=== PATIENT | male | born 1965 | race African-American/Black ===

== ENCOUNTER 2016-07-18 17:47 | Emergency (ER) | payer OTHER | END 2016-07-18 19:10 | disposition home or self-care (01) | LOC: FER 17:47 | DX: S20.212A Contusion of left front wall of thorax, initial encounter (principal); E11.9 Type 2 diabetes mellitus without complications; I10 Essential (primary) hypertension; Z79.82 Long term (current) use of aspirin; W01.0XXA Fall on same level from slipping, tripping and stumbling without subsequent striking against object, initial encounter; Y92.009 Unspecified place in unspecified non-institutional (private) residence as the place of occurrence of the external cause | CPT/HCPCS: 71101; 99283 ==

== ENCOUNTER 2016-07-23 16:11 | Emergency (ER) | payer OTHER ==
[2016-07-23 17:03] LABS: BASOPHIL 0.5 % (0-2); EOSINOPHIL 1.4 % (0-5); HCT 41.3 % (42.0-52.0); HGB 13.8 g/dl (13.2-18.0); LYMPHOCYTE 34.7 % (15-48); MCH 29.4 pg (25.0-31.0); MCHC 33.4 g/dL (32.0-36.0); MCV 87.9 fL (78.0-100.0); MONOCYTE 9.5 % (0-12); MPV 9.3 fL (6.0-9.5); NEUTROPHIL 53.9 % (41-80); PLT 260 K/uL (150-400); RDW 13.9 % (11.5-14.0); WBC 6.3 K/uL (4.0-10.5)
[2016-07-23 17:19] LABS: ALBUMIN 4.1 g/dL (3.5-5.0); BILIRUBIN - TOTAL 0.2 mg/dL (0.1-1.0); CREATININE 0.9 mg/dL (0.7-1.2); GLOBULIN (CALCULATION) 2.5 g/dL (2.2-4.2); POTASSIUM 3.9 mmol/L (3.5-5.1); TOTAL PROTEIN 6.6 g/dL (6.4-8.3)
[2016-07-23 17:21] LABS: PRO-BNP 94 pg/mL (0-125); TROPONIN T < 0.010 ng/mL
[2016-07-23 17:24] LABS: LACTIC ACID 1.2 mmol/L (0.5-2.2)
[2016-07-23 17:27] LABS: CKMB 5.47 ng/mL (0.97-4.94)
== END 2016-07-23 17:57 | disposition home or self-care (01) ==
LOC: FER 16:11
PROVIDERS: Nurse Practitioner Family
DX: R07.89 Other chest pain (principal); R05 Cough; E11.9 Type 2 diabetes mellitus without complications; I10 Essential (primary) hypertension; K21.9 Gastro-esophageal reflux disease without esophagitis; F17.210 Nicotine dependence, cigarettes, uncomplicated; W19.XXXD Unspecified fall, subsequent encounter
CPT/HCPCS: 36415; 71020; 80053; 82550; 82553; 83605; 83880; 84484; 85025; 85379; 93005; 94640

== ENCOUNTER 2017-01-21 17:06 | Emergency (ER) | payer OTHER | END 2017-01-21 20:46 | disposition home or self-care (01) | LOC: FER 17:06 | DX: S91.331A Puncture wound without foreign body, right foot, initial encounter (principal); E11.9 Type 2 diabetes mellitus without complications; K21.9 Gastro-esophageal reflux disease without esophagitis; I10 Essential (primary) hypertension; F17.210 Nicotine dependence, cigarettes, uncomplicated; Z79.4 Long term (current) use of insulin; Z79.82 Long term (current) use of aspirin; Z79.899 Other long term (current) drug therapy; W45.0XXA Nail entering through skin, initial encounter; Y92.009 Unspecified place in unspecified non-institutional (private) residence as the place of occurrence of the external cause | CPT/HCPCS: 73630; 90471; 90715 ==

== ENCOUNTER 2021-04-07 08:07 | Emergency (ER) | payer OTHER ==
[~2021-04-07 08:07] MED LIST: ADULT ASPIRIN R81 MG PO; BACTRIM DS TAB1 EACH PO; CLARITIN10 MG PO; HUMULIN 70100 UNIT/1 SC; KEFLEX500 MG PO; PRINIVIL20 MG PO; PROTONIX 40MG T40 MG PO
[2021-04-07] MEDS ORDERED: NORCO 5-325 TA1 EACH PO (08:41)
== END 2021-04-07 09:28 | disposition home or self-care (01) ==
LOC: FER 08:07
DX: T81.89XA Other complications of procedures, not elsewhere classified, initial encounter (principal); E11.9 Type 2 diabetes mellitus without complications; I10 Essential (primary) hypertension; F17.200 Nicotine dependence, unspecified, uncomplicated; Z79.4 Long term (current) use of insulin
CPT/HCPCS: 99283; J1170